=== PATIENT | female | born 1990 | race Caucasian/White ===

== ENCOUNTER 2024-11-30 14:45 | Outpatient (CLI) | payer OTHER, SELFPAY ==
--- NOTE | ~2024-11-30 | XR_ITS ---
EXAMINATION: XR hip LT 2V w AP pelvis DATE: 11/30/2024 15:24 INDICATION: Left hip and groin pain TECHNIQUE: Anteroposterior view of the pelvis and anteroposterior and frog-leg lateral views of the l eft hip were obtained. COMPARISON: None. FINDINGS: Bone alignment is normal. No fracture or suspected osteonecrosis. Mild osteoarthritis at the bilatera l sacralized joints. Bilateral hip joint spaces are relatively preserved. Soft tissues are unremarkab le. IMPRESSION: 1. Mild bilateral sacroiliac osteoarthritis. Otherwise unremarkable pelvis and left hip radiographs. Reviewed, dictated and finalized at location B. [employer]
== END 2024-11-30 14:46 | disposition home or self-care (01) ==
LOC: MICIMG 14:52
PROVIDERS: PCP Internal Medicine Geriatric Medicine; Visit Provider Chiropractor
DX: M25.552 Pain in left hip (principal)
CPT/HCPCS: 73502